=== PATIENT | male | born 1990 | race Caucasian/White ===

== ENCOUNTER → 2021-09-02 | Outpatient (CLI) | payer OTHER ==
[2021-09-02 06:29] LABS: HEMOGLOBIN 15.5 gm/dl (14.0-17.5); RED BLOOD COUNT 5.26 M/UL (4.20-5.50); WHITE BLOOD COUNT 6.4 K/UL (4.5-11.0)
[2021-09-02 07:45] LABS: BUN/CREATININE RATIO 14 (0-10)
[2021-09-04 11:11] LABS: TESTOSTERONE, SERUM 381 ng/dL (264-916)
== END ==
LOC: LAB 05:50
PROVIDERS: Family Medicine
DX: E78.2 Mixed hyperlipidemia (principal)
CPT/HCPCS: 80053; 80061; 84403; 85027